=== PATIENT | male | born 1985 | race Hispanic/Latino ===

== ENCOUNTER 2019-03-12 22:19 | Emergency (ER) | payer SELFPAY ==
[2019-03-12 22:20] VITALS: BP 150/96; PULSE 77; RESP 16; TEMP 36.6; O2SAT 95; BMI 26.9
--- NOTE | 2019-03-12 22:36 | ED.RN ---
pain in the finger tips and toes bilaterally, for 1 month.
--- NOTE | 2019-03-12 23:23 | ED.DCSUM_ITS ---
History of Present Illness Chief Complaint: General Illness Informant: Patient Onset: Month(s) Context: Gradual Onset Timing: Continuous Narrative: Patient is a 33-year-old male with no known past medical history presenting with with pain in his bilateral legs and paresthesias in his bilateral hands. Patient states is been present for the past month and a half. He was unable to sleep tonight so he came to the emergency room to be evaluated further for this. He states it feels like an ache in his legs and he also has pain into his left foot. Patient states when he touches things they feel further way. He has not had this evaluated before. He states he does not have a primary care doctor. He is been taking [id number] calcium supplements that does not seem to be helping. He denies any fever, chills, chest pain, shortness of breath, difficulty breathing, GI symptoms or symptoms. He does not have any history of diabetes that he is aware of or neuropathy. He denies any injuries. He denies any associated swelling/edema. 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 Past Medical History - Allergies and Home Meds Allergies/Adverse Reactions: Allergies acetaminophen [From Tylenol] Adverse Reaction (Verified 03/12/19 22:27) Nausea Primary Care Physician: Serafin Montes MD [STAFF PHYSICIAN] - Smoking Status: Former smoker Review of Systems All systems negative except as indicated Musculoskeletal: Reports: Myalgias - Bilateral calfs Neurological: Reports: Parasthesia - Bilateral hands Physical Exam Vital Signs/Narrative: Vital Signs Temp Pulse Resp BP Pulse Ox 03/12/19 22:20 97.9 F 77 16 150/96 H 95 Inital Vital Signs reviewed: Yes General: Well nourished, Well developed, No Acute Distress Head: Normocephalic, Atraumatic Eyes: Perrl, EOMI ENT: Moist mucous membranes, No rhinorrhea Neck: Supple, Nontender Cardiovascular: Regular rate, Regular rhythm, No murmurs Respiratory: No distress, CTA bilaterally, Chest nontender Abdomen: Soft, Nontender, Nondistended, Normal bowel sounds Back: Nontender, Normal Inspection Extremities: Nontender, No edema, - - 2+ bilateral DP pulses. Negative for: Calf Tenderness Skin: Normal color, No rash Neurological: Alert, Oriented x3, Cranial nerves II-XII grossly intact, Normal Strength, Normal Sensation, Normal Gait, Parasthesia - Sensation intact light touch however he endorses that it feels different than it should Psychological: Normal affect, Normal Mood Diagnostic/Tx/Re-eval Laboratory Data 03/12/19 03/12/19 23:35 23:35 WBC 8.7 RBC 5.52 Hgb 16.8 H Hct 49.9 MCV 90.4 MCH 30.4 MCHC 33.7 RDW Std Deviation 42.4 RDW Coeff of Shari 12.8 Plt Count 232 MPV 11.4 Immature Gran % (Auto) 0.200 Neut % (Auto) 55.3 Lymph % (Auto) 32.1 [place] % (Auto) 10.9 H Eos % (Auto) 0.9 Baso % (Auto) 0.6 Absolute Neuts (auto) 4.8 Absolute Lymphs (auto) 2.80 Nucleated RBC % 0 Sodium 137 Potassium 4.0 Chloride 106 Carbon Dioxide 27.0 Anion Gap 4 L BUN 18 Creatinine 0.68 L Estim Creat Clear Calc 128.17 Est GFR (MDRD) Af Amer 172 Est GFR (MDRD) Non-Af 142 BUN/Creatinine Ratio 26.6 H Glucose 91 Calcium 9.3 Total Bilirubin 0.50 AST 172 H ALT 193 H Alkaline Phosphatase 144 H Total Creatine Kinase 256 Total Protein 8.5 H Albumin 4.1 Globulin 4.4 H Albumin/Globulin Ratio 0.9 - Medical Decision Making Patient is evaluated for a month and a half of pain in his lower legs as well as paresthesias in his hands. He appears nontoxic in no acute distress. Vital signs are significant only for mild hypertension. Patient does not have any edema I do not suspect a DVT. He has a normal neurologic exam. Screening labs are obtained looking for signs of infection, electrode abnormality or rhabdomyolysis. These are all grossly negative. Patient is instantly found to have a mild transaminitis. He does not have any GI symptoms. He does admit after further questioning that he drinks 6-8 beers daily. Patient is counseled to stop drinking as this appears to be affecting his liver. I do not think this is what is causing the symptoms well. He does not have an anemia or abnormal MCV consistent with vitamin deficiency. Patient is given a PCP for outpatient follow-up. Patient is counseled on signs and symptoms requiring return to the emergency room. Patient verbalizes agreement and understand this plan. Patient discharged home in stable and improved condition. ED Disposition - Plan for ED Patient: Disposition: Home or Assisted Living Diagnosis: Myalgia, Paresthesia, Transaminitis Instructions: Possible Causes of Low Back or Leg Pain, Paraesthesias Referrals: Serafin Montes MD [STAFF PHYSICIAN] - Additional Instructions: The exact cause of your symptoms is not clear today. He did not find any significant laboratory abnormalities that explain your pain and tingling. P nicolasase follow-up with a primary care doctor for further testing. Your lab work did show that your liver enzymes are elevated. This could be from drinking. Please stop drinking alcohol as it is affecting her liver.
[2019-03-12] MEDS: Ibuprofen 600 MG Tablet PO (23:27)
[2019-03-12 23:39] LABS: Absolute Neutrophil Count 4.8 X10^3/uL (2.0-7.7); Basophil# 0.05 X10^3/uL; Basophil% 0.6 % (0-1); Eosinophil# 0.08 X10^3/uL; Eosinophils% 0.9 % (0-5); Hematocrit 49.9 % (40-54); Hemoglobin 16.8 g/dL (13.0-16.5); Lymphocyte % 32.1 % (19-41); Mean Corp Hgb Conc 33.7 g/dL (32-36); Mean Corpuscular Hgb 30.4 pg (27.0-32.0); Mean Corpuscular Volume 90.4 fL (80-94); Mean Platelet Vol. 11.4 fl (6.2-12.0); Monocyte# 0.95 X10^3/uL; Monocyte% 10.9 % (0-10); NRBC Flagged by Analyzer 0 % (0-5); Neutrophil # 4.83 X10^3/uL (2.7-7.7); Neutrophil % 55.3 % (47-70); Platelet Count 232 K/mm3 (150-450); RBC Distribution Width CV 12.8 % (11.6-14.6); RBC Distribution Width SD 42.4 fl (35.1-43.9); Red Blood Count 5.52 M/mm3 (4.6-6.2); White Blood Count 8.7 K/mm3 (4.4-11.0)
[2019-03-12 23:57] LABS: ALB/GLOB Ratio 0.9 RATIO (0.9-2.4); AST(SGOT) 172 U/L (15-37); Alanine Aminotransfer ALT/SGPT 193 U/L (16-61); Albumin, Serum 4.1 g/dL (3.2-5.0); Alkaline Phosphatase 144 U/L (45-117); Anion Gap 4 (5-15); BUN 18 mg/dL (7-18); BUN/Creat Ratio 26.6 RATIO (10-20); CPK Total, Creatine Kinase 256 U/L (39-308); Calcium,Total 9.3 mg/dL (8.5-10.1); Chloride 106 mmol/L (98-107); Creatinine, Serum 0.68 mg/dL (0.70-1.30); EST Glomerular Filtration Rate 142 mL/min (>60); Est Glom Filt Rate - Afr Amer 172 mL/min (>60); Estimated Creatinine Clearance 128.17 ml/min; Globulin 4.4 g/dL (2.2-4.2); Glucose 91 mg/dL (74-106); Protein, Total 8.5 g/dL (6.4-8.2); Sodium Level 137 mmol/L (136-145)
[2019-03-13] VITALS: BP 144/87; PULSE 82; RESP 16; O2SAT 97
[2019-03-13 00:55] VITALS: RESP 16
== END 2019-03-13 00:56 | disposition home or self-care (01) ==
PROVIDERS: Emergency Provider Emergency Medicine
DX: M79.10 Myalgia, unspecified site (principal); R20.2 Paresthesia of skin; R74.0 Nonspecific elevation of levels of transaminase and lactic acid dehydrogenase [LDH]; Z87.891 Personal history of nicotine dependence; Z88.6 Allergy status to analgesic agent
CPT/HCPCS: 80053; 82550; 85025; 99284; A4216